=== PATIENT | male | born 1940 | race Caucasian/White ===

== ENCOUNTER 2017-08-14 12:46 | Outpatient (CLI) | payer MEDICARE, BC, SELFPAY ==
--- NOTE | 2017-08-14 12:50 | DI.RAD.S_ITS ---
PROCEDURE: PAIN L INTERLAMINAR/CAUDAL INJ INDICATIONS: Lumbar stenosis FINDINGS: Fluoroscopic spot filming was performed to verify placement of spinal needles at the L4 L5 level(s), as labeled on the films. Appropriate location(s) of the needle tip(s) was confirmed by injection of iodinated contrast. IMPRESSION: Fluoroscopy support for pain management. Dictated by: Nichole March M.D. on 08/14/2017 at 16:25 Approved by: Nichole March M.D. on 08/14/2017 at 16:25
[2017-08-14 14:01] VITALS: BP 149/89; PULSE 69; RESP 18; TEMP 36.5; O2SAT 98
[2017-08-14 14:09] VITALS: BP 152/110; PULSE 93; RESP 18; O2SAT 96
--- NOTE | 2017-08-14 14:10 | P.PCN_ITS ---
Procedures Date/Time Date of procedure: 08/14/17 Time of procedure: 14:09 General Procedure description: PREOP DIAGNOSIS 1. FORMAINAL STENOSIS WITH LE SYMPTOMS POST OP DIAGNOSIS 1. FORMAINAL STENOSIS WITH LE SYMPTOMS PROCEDURES 1. FLUOROSCOPICALLY GUIDED CONTRAST CONTROLLED TRANSFORAMINAL EPIDURAL STEROID INJECTION - RIGHT L4/5 TFESI PHYSICIAN: Simon Strauss DO INDICATIONS: Jimmy is referred by Dr. Ngo for treatment of Foraminal Stenosis with Right LE Symptoms FINDINGS Foraminal Nerve Root Compression secondary to disc disease and facet hypertrophy DESCRIPTION OF PROCEDURE: Following denial of allergy and review of potential side effects and complications, including, but not necessarily limited to, infection, allergic reaction, local tissue breakdown, stroke, temporary or permanent nerve injury, paralysis, and possible , the patient indicated that the patient understood and agreed to proceed. An informed consent document was signed by the patient, witnessed by a nurse, and placed in the patient's chart. Additionally, other treatment options including medications, modalities, and physical therapy were reviewed with the patient. In the prone position following sterile prep and drape of the lumbar region, the Right L4/5 posterior neuroforamen was identified fluoroscopically. The skin was anesthetized via a 25-gauge 1.5-inch needle with 1% lidocaine solution. At this point, a 25-gauge 3.5-inch spinal needle was atraumatically introduced and advanced under fluoroscopic guidance through the posterior Right L4/5 neuroforamen to approximately the anterior aspect of the canal. Depth was confirmed on lateral view. Following negative aspiration, injection of approximately 1.5 cc of Isovue 200 under live fluoroscopy in the AP view confirmed excellent flow along the nerve root, into the epidural space without vascular or intrathecal uptake observed Radiological data, including multiple fluoroscopic views of the lumbosacral spine, reveal a spinal needle at the right L4/5 posterior neuroforamen. Subsequent views show flow of contrast material flowing superiorly and inferiorly along the nerve root confirming epidural flow. Subsequently, a test dose of 1.5 cc of 1% lidocaine solution was administered and patient was observed for two minutes for signs or symptoms of complications , including abdominal pain, shortness of breath, bilateral upper or lower extremity weakness, nausea and vomiting, prior to steroid injection. At this point, a total of 3 cc or 20 mg of dexamethasone and 80mg Depo Medrol was injected without incident. The patient was then transferred to the recovery area where they were observed for an appropriate time after the injection. The patient reported a VAS score of 7 prior to the procedure and a post-procedure VAS of 0. Total Fluoroscopy Time: 20.9 seconds POST OP INSTRUCTIONS The patient was provided a Pain Log to continue to record their response to the target-specific procedure prior to follow-up visit with their referring physician. Additionally, specific post-injection care instructions and a contact number to our office were provided if concerns arise regarding possible complications associated with the procedure are suspected. Simon Strauss DO Complications: none
[2017-08-14 14:14] VITALS: BP 151/102; PULSE 73; RESP 18; O2SAT 97
[2017-08-14] MEDS: DEXAMETHASONE 10 MG/ML VIAL 20 MG INJ (14:14)
[2017-08-14] MEDS: BUPIVACAINE 0.25% (PF) 30 ML VIAL INJ (14:14)
[2017-08-14] MEDS: methylPREDNISolone acetate 80 MG/ML VIAL INJ (14:14)
[2017-08-14] MEDS: IOPAMIDOL 15 ML VIAL 3 ML INJ (14:14)
[2017-08-14 14:19] VITALS: BP 149/84; PULSE 66; RESP 18; O2SAT 96
[2017-08-14 14:23] VITALS: BP 148/94; PULSE 62; RESP 18; O2SAT 97
[2017-08-14 14:49] VITALS: BP 138/86; PULSE 61; RESP 17; O2SAT 99
== END 2017-08-14 14:59 | disposition home or self-care (01) ==
LOC: RAD 12:48
PROVIDERS: PCP Internal Medicine; Visit Provider Physical Medicine & Rehabilitation
DX: M48.061 Spinal stenosis, lumbar region without neurogenic claudication (principal); M47.26 Other spondylosis with radiculopathy, lumbar region
CPT/HCPCS: 62323; J1040; J1100

== ENCOUNTER 2017-12-18 08:33 | Outpatient (CLI) | payer MEDICARE, BC, SELFPAY ==
--- NOTE | 2017-12-18 08:37 | DI.RAD.S_ITS ---
PROCEDURE: PAIN L/S TRANSFORAMINAL INJECT INDICATIONS: SPINAL STENOSIS FINDINGS: Fluoroscopic spot filming was performed to verify placement of spinal needles at the L4-L5 level(s), as labeled on the films. Appropriate location(s) of the needle tip(s) was confirmed by injection of iodinated contrast. IMPRESSION: Fluoroscopy for pain management. Dictated by: Nichole March M.D. on 12/18/2017 at 13:45 Approved by: Nichole March M.D. on 12/18/2017 at 13:46
[2017-12-18 08:52] VITALS: BP 131/82; PULSE 74; RESP 20; TEMP 36.1; O2SAT 98
[2017-12-18 09:37] VITALS: BP 135/81; PULSE 85; RESP 18; O2SAT 97
[2017-12-18 09:43] VITALS: BP 135/76; PULSE 70; RESP 18; O2SAT 96
[2017-12-18] MEDS: DEXAMETHASONE 10 MG/ML VIAL 20 MG INJ (09:44)
[2017-12-18] MEDS: BUPIVACAINE 0.25% (PF) VIAL 2 ML INJ (09:44)
[2017-12-18] MEDS: methylPREDNISolone acetate 80 MG/ML VIAL INJ (09:44)
[2017-12-18] MEDS: IOPAMIDOL 15 ML VIAL 3 ML INJ (09:44)
--- NOTE | 2017-12-18 09:46 | PC.NURSE ---
ASSISTING PT OFF TABLE AND TRANSPORTING TO POST PROC AREA IN STABLE CONDITION. PT WAS NOT GIVEN ANY SEDATION MEDS
[2017-12-18 09:50] VITALS: BP 95/71; PULSE 88; RESP 18; O2SAT 97
--- NOTE | 2017-12-18 09:52 | P.PCN_ITS ---
Procedures Date/Time Date of procedure: 12/18/17 Time of procedure: 09:50 General Procedure description: PREOP DIAGNOSIS 1. FORMAINAL STENOSIS WITH LE SYMPTOMS POST OP DIAGNOSIS 1. FORMAINAL STENOSIS WITH LE SYMPTOMS PROCEDURES 1. FLUOROSCOPICALLY GUIDED CONTRAST CONTROLLED TRANSFORAMINAL EPIDURAL STEROID INJECTION - RIGHT L4/5 TFESI PHYSICIAN: Simon Strauss DO INDICATIONS: Jimmy is referred by Dr. Ngo for treatment of Foraminal Stenosis with Right LE Symptoms FINDINGS Foraminal Nerve Root Compression secondary to disc disease and facet hypertrophy DESCRIPTION OF PROCEDURE: Following denial of allergy and review of potential side effects and complications, including, but not necessarily limited to, infection, allergic reaction, local tissue breakdown, stroke, temporary or permanent nerve injury, paralysis, and possible , the patient indicated that the patient understood and agreed to proceed. An informed consent document was signed by the patient, witnessed by a nurse, and placed in the patient's chart. Additionally, other treatment options including medications, modalities, and physical therapy were reviewed with the patient. After review of previous anaesthesic history and IV conscious sedation the patient was deemed safe to proceed with todays procedure with IV conscious sedation as ASA class II designation. Safety time-out was performed to confirm patient ID, procedure to be performed and site of procedure. IV sedation was deemed unnecessary and thus not administered by the RN after DO order, titrated to patient comfort during the course of the procedure while the patient remained responsive to all verbal commands In the prone position following sterile prep and drape of the lumbar region, the Right L4/5 posterior neuroforamen was identified fluoroscopically. The skin was anesthetized via a 25-gauge 1.5-inch needle with 1% lidocaine solution. At this point, a 25-gauge 3.5-inch spinal needle was atraumatically introduced and advanced under fluoroscopic guidance through the posterior Right L4/5 neuroforamen to approximately the anterior aspect of the canal. Depth was confirmed on lateral view. Following negative aspiration, injection of approximately 1.5 cc of Isovue 200 under live fluoroscopy in the AP view confirmed excellent flow along the nerve root, into the epidural space without vascular or intrathecal uptake observed Radiological data, including multiple fluoroscopic views of the lumbosacral spine, reveal a spinal needle at the right L4/5 posterior neuroforamen. Subsequent views show flow of contrast material flowing superiorly and inferiorly along the nerve root confirming epidural flow. Subsequently, a test dose of 1.5 cc of 1% lidocaine solution was administered and patient was observed for two minutes for signs or symptoms of complications , including abdominal pain, shortness of breath, bilateral upper or lower extremity weakness, nausea and vomiting, prior to steroid injection. At this point, a total of 3 cc or 20 mg of dexamethasone and 80mg Depo Medrol was injected without incident. The procedure tolerated the procedure well without signs or symptoms of complications prior to transfer to the recovery area continued monitoring without incident.The patient was then transferred to the recovery area where they were observed for an appropriate time after the injection. The patient reported a VAS score of 7 prior to the procedure and a post- procedure VAS of 0. Total Fluoroscopy Time: 20.9 seconds Total Conscious Sedation Time: 24min POST OP INSTRUCTIONS The patient was provided a Pain Log to continue to record their response to the target-specific procedure prior to follow-up visit with their referring physician. Additionally, specific post-injection care instructions and a contact number to our office were provided if concerns arise regarding possible complications associated with the procedure are suspected. Smion Strauss DO Complications: none
--- NOTE | 2017-12-18 10:19 | PC.NURSE ---
received pt from Viktoriya MARSHALL post procedure. pt had no sedation. able to move from w/c to chair with minimal assist. resumed monitoring.
--- NOTE | 2017-12-19 13:02 | PC.NURSE ---
FOLLOW UP CALL MADE. LEFT MSG WITH CLINIC NUMBER AND HOURS FOR ANY QUESTIONS/CONCERNS.
== END 2017-12-18 10:21 ==
LOC: RAD 08:35
PROVIDERS: PCP Internal Medicine; Visit Provider Physical Medicine & Rehabilitation
DX: M48.062 Spinal stenosis, lumbar region with neurogenic claudication (principal); M51.16 Intervertebral disc disorders with radiculopathy, lumbar region
CPT/HCPCS: 64483; J1040; J1100; J2250

== ENCOUNTER 2018-06-20 13:01 | Outpatient (CLI) | payer MEDICARE, BC, SELFPAY ==
--- NOTE | 2018-06-20 13:02 | DI.RAD.S_ITS ---
PROCEDURE: PAIN L INTERLAMINAR/CAUDAL INJ INDICATIONS: 62259- Right L5/S1 TLESI FINDINGS: Fluoroscopic spot filming was performed to verify placement of spinal needles at the right L5-S1 level(s), as labeled on the films. Appropriate location(s) of the needle tip(s) was confirmed by injection of iodinated contrast. IMPRESSION: Fluoroscopy for pain management. Dictated by: Nichole March M.D. on 06/20/2018 at 17:02 Approved by: Nichole March M.D. on 06/20/2018 at 17:02
[2018-06-20 13:12] VITALS: BP 143/87; PULSE 74; RESP 18; TEMP 36.1; O2SAT 98
[2018-06-20 13:49] VITALS: BP 100/62; PULSE 72; RESP 18; O2SAT 94
[2018-06-20 13:55] VITALS: BP 133/86; PULSE 72; RESP 18; O2SAT 95
--- NOTE | 2018-06-20 14:04 | P.PCN_ITS ---
Procedures Date/Time Date of procedure: 06/20/18 Time of procedure: 14:02 General Procedure description: PROVIDER: Simon Strauss DO Operative Note PREOP DIAGNOSIS 1. HNP WITH RADICULAR FEATURES, 2. MULTILEVEL CENTRAL STENOSIS, POST OP DIAGNOSIS 1. HNP WITH RADICULAR FEATURES, 2. MULTILEVEL CENTRAL STENOSIS, PROCEDURES 1. FLUORSCOPICALLY GUIDED CONTRAST CONTROLLED INTERLAMINAR EPIDURAL STEROID INJECTION - L5/S1 PHYSICIAN: Simon Strauss, INDICATIONS Jimmy is referred by Dr. Romano for treatment of Multilevel Stenosis Right LE symptoms. FINDINGS Multilevel Central Spinal Stenosis with Nerve Root Compression DESCRIPTION OF PROCEDURE Fluoroscopically guided, contrast-controlled para right L5/S1 translaminar epidural steroid injection. Following denial of allergy and review of potential side effects and complicati ons, including, but not necessarily limited to, infection, allergic reaction, local tissue breakdown, temporary as well as permanent nerve injury, paralysis, stroke and possible , the patient indicated that the patient understood and agreed to proceed. An informed consent document was signed by the patient, witnessed by a nurse, and placed in the patient's chart. Additionally, other treatment options including modalities, medications, and physical therapy were reviewed with the patient. After review of previous anaesthesic history and IV conscious sedation the patient was deemed safe to proceed with todays procedure with IV conscious sedation as ASA class II designation. Safety time-out was performed to confirm patient ID, procedure to be performed and site of procedure. IV sedation was deemed unnecessary and thus not administered by the RN after DO order, titrated to patient comfort during the course of the procedure while the patient remained responsive to all verbal commands. In the prone position, following sterile prep and drape of the lumbar region, the L5/S1 translaminar space was identified fluoroscopically. The skin was anesthetized via a 25-gauge, 1.5-inch needle with 1% lidocaine solution. At this point, a 22-gauge short bevel spinal needle was atraumatically introduced and advanced under fluoroscopic guidance into the region of the L5/S1 translaminar space. Depth was confirmed on lateral view. Radiological data, including multiple fluoroscopic views of the lumbar spine, reveal a spinal needle at the L5/S1 translaminar space. Lateral views then show placement of the needle in the epidural space. Subsequent views show contrast material flowing superiorly and inferiorly in the epidural space. No vascular or intrathecal uptake is observed. At this point, using loss of resistance technique with saline and air, the epidural space was entered. This was confirmed following negative aspiration with injection of approximately 1.5 cc of Isovue 200, showing excellent epidural flow without vascular or intrathecal uptake. At this point, 1 cc of 1% lidocaine solution combined with 3cc including 20mg of dexamethasone and 6mg of betamethasone was injected without incident. The patent tolerated the procedure without signs of symptoms of complications prior to transfer to the recovery area for further monitoring. The patient was then transferred to the recovery area where they were observed for an appropriate period of time after the injection. The patient reported a VAS score of 6 prior to the procedure and a post-procedure VAS of 0. Total Fluoroscopy Time: 11.8 seconds Total Conscious Sedation Time: 24min POST OP INSTRUCTIONS The patient was provided a Pain Log to continue to record their response to the target-specific procedure prior to follow-up visit with their referring physician. Additionally, specific post-injection care instructions and a contact number to our office were provided if concerns arise regarding possible complications associated with the procedure are suspected. Simon Strauss DO Complications: none
--- NOTE | 2018-06-20 14:09 | PC.NURSE ---
pt tolerated procedure well and with no sedation. Able to get off the table with standby assist. Transferred pt via wheelchair to pre procedure room for continued monitoring with Viktoriya MARSHALL.
[2018-06-20 14:11] VITALS: BP 152/77; PULSE 74; RESP 16; O2SAT 97
--- NOTE | 2018-06-20 14:11 | PC.NURSE ---
ACCEPTED CARE OF PT IN POST PROC AREA IN STABLE CONDITION. PT WAS NOT GIVEN SEDATION MEDS
[2018-06-20] MEDS: BUPIVACAINE 0.25% (PF) VIAL 2 ML INJ (14:23)
[2018-06-20] MEDS: IOPAMIDOL 15 ML VIAL 3 ML INJ (14:23)
[2018-06-20] MEDS: BETAMETHASONE 30 MG/5 ML MDV 6 MG INJ (14:24)
[2018-06-20] MEDS: DEXAMETHASONE 10 MG/ML VIAL 20 MG INJ (14:24)
== END 2018-06-20 14:43 | disposition home or self-care (01) ==
LOC: RAD 13:02
PROVIDERS: PCP Internal Medicine; Visit Provider Physical Medicine & Rehabilitation
DX: M51.17 Intervertebral disc disorders with radiculopathy, lumbosacral region (principal); M48.07 Spinal stenosis, lumbosacral region; M48.062 Spinal stenosis, lumbar region with neurogenic claudication
CPT/HCPCS: 62323; J0702; J1100